=== PATIENT | female | born 1970 | race African-American/Black ===

== ENCOUNTER 2017-09-09 02:13 | Emergency (ER) | payer OTHER ==
[~2017-09-09] VITALS: Ht 167.6 cm; Wt 83.9 kg
[2017-09-09] MEDS ORDERED: SODIUM CHLORIDE 0.9% 1,000 ML IV ONE (06:42)
[2017-09-09] MEDS ORDERED: ASPirin 81 mg TAB PO ONE (06:45)
[2017-09-09 07:50] LABS: Eosinophils # (auto) 0 uL; Eosinophils % (auto) 0.2 % (0.0-7.0); Hemoglobin 12.6 g/dL (12.2-16.2); Mean Corpuscular Hemoglobin 24.4 pg (28.0-32.0); Mean Corpuscular Hgb Conc. 32.5 g/dL (32.0-36.0); Red Blood Cells 5.18 10^6/uL (4.0-5.20); Red Cell Distribution Width 16.6 % (11.8-14.3)
[2017-09-09 07:52] LABS: Basophils # (auto) 0.2 uL; Hematocrit 38.8 % (36.0-46.0); Lymphocytes # (auto) 1.9 uL; Lymphocytes % (auto) 11.2 % (10.0-50.0); Mean Corpuscular Volume 74.9 fL (80.0-100.0); Monocytes # (auto) 0.8 uL; Monocytes % (auto) 4.9 % (0.0-12.0); Neutrophils # (auto) 14.1 uL; Neutrophils % (auto) 82.7 % (37.0-80.0); Platelet Count (auto) 319 10^3/uL (140-450)
[2017-09-09 08:12] LABS: Albumin 3.2 g/dL (3.4-5.0); Bilirubin, Total 0.3 mg/dL (0.2-1.0); Calcium 8.4 mg/dL (8.5-10.1); INR 0.94 (0.9-1.15); Magnesium 2.1 mg/dL (1.6-2.6); Potassium 4.1 mmol/L (3.5-5.1); Prothrombin Time 10.1 sec (9.27-12.13); Total Protein 7.4 g/dL (6.4-8.2)
[2017-09-09 09:02] LABS: Urine Bacteria MANY /hpf (None Seen); Urine Blood 1+ /uL (Negative); Urine Mucus FEW (None Seen); Urine Specific Gravity 1.011 (1.001-1.035); Urine WBC 22 /hpf (0 - 5)
[2017-09-09] MEDS ORDERED: IOHEXOL 350 MG/ML 100ML IJ ONE (10:43)
[2017-09-09] MEDS ORDERED: cefTRIAXone 1GM/10ml IVPUSH 10 ML IV ONE (10:45)
[2017-09-09 13:36] VITALS: BP 142/70
== END 2017-09-09 13:59 | disposition home or self-care (01) ==
LOC: EDBD 02:13 → ER 02:13
DX: J18.1 Lobar pneumonia, unspecified organism (principal); N39.0 Urinary tract infection, site not specified; R09.89 Other specified symptoms and signs involving the circulatory and respiratory systems; E46 Unspecified protein-calorie malnutrition; E11.65 Type 2 diabetes mellitus with hyperglycemia; I10 Essential (primary) hypertension; F17.210 Nicotine dependence, cigarettes, uncomplicated
CPT/HCPCS: 36415; 71045; 71275; 80053; 81001; 83735; 84443; 84484; 85025; 85379; 85610; 85730; 87040; 94761; 96361; 96365; 99285; Q9967; 93005

== ENCOUNTER 2017-12-24 17:03 | Inpatient (IN) | payer OTHER ==
[~2017-12-24] VITALS: Ht 175.3 cm; Wt 69.5 kg
[2017-12-24] MEDS ORDERED: HEPARIN IN NS 1000Units/500mL 0 ML ONE (17:48)
[2017-12-24] MEDS ORDERED: IODIXANOL 320MG/ML 100ML BTL IV ONE (17:48)
[2017-12-24] MEDS ORDERED: LIDOCAINE 2%HCL (LOCAL ANESTH.) INJ 20ML MDV ONE (17:48)
[2017-12-24 17:49] LABS: Urine Pregnacy Test Negative (Negative)
[2017-12-24 17:55] LABS: Urine Bacteria FEW /hpf (None Seen); Urine Blood Negative /uL (Negative); Urine Specific Gravity 1.035 (1.001-1.035); Urine WBC 30 /hpf (0 - 5)
[2017-12-24 18:02] LABS: Alcohol, Urine < 3.0 mg/dL (0-5); Amphetamine Screen, Urine NEGATIVE (NEGATIVE); Barbiturate Scree,Urine NEGATIVE (NEGATIVE); Benzodiazephine Screen, Urine NEGATIVE (NEGATIVE); Cannabinoid Screen, Urine NEGATIVE (NEGATIVE); Cocaine Screen, Urine NEGATIVE (NEGATIVE); Opiate Scree,Urine NEGATIVE (NEGATIVE); Phencyclidine Screen, Urine NEGATIVE (NEGATIVE)
[2017-12-24 18:32] LABS: Albumin 2.6 g/dL (3.4-5.0); Calcium 8.5 mg/dL (8.5-10.1); Potassium 4.4 mmol/L (3.5-5.1)
[2017-12-24 18:36] LABS: Bilirubin, Total 0.3 mg/dL (0.2-1.0); Total Protein 7.2 g/dL (6.4-8.2)
[2017-12-24] MEDS ORDERED: cloNIDine HCL 0.1 MG TAB ONE (18:38)
[2017-12-24] MEDS ORDERED: cloNIDine HCL 0.1 MG TAB PO ONE (18:45)
[2017-12-24] MEDS ORDERED: SODIUM CHLORIDE 0.9% 500 ML IV ONE (19:00)
[2017-12-24] MEDS ORDERED: InsuLIN REG 1unit/0.01ml Soln (100units/ml) IV ONE ×2 (19:00→22:00)
[2017-12-24 19:02] LABS: White Blood Cell 9.3 10^3/uL (4.4-10.8)
[2017-12-24 19:03] LABS: Basophils # (auto) 0.1 uL; Eosinophils # (auto) 0 uL; Eosinophils % (auto) 0.5 % (0.0-7.0); Hemoglobin 12.7 g/dL (12.2-16.2); Lymphocytes % (auto) 21.7 % (10.0-50.0); Monocytes # (auto) 0.7 uL; Monocytes % (auto) 7.2 % (0.0-12.0); Neutrophils # (auto) 6.5 uL; Neutrophils % (auto) 69.6 % (37.0-80.0); Red Blood Cells 5.15 10^6/uL (4.0-5.20)
[2017-12-24 19:04] LABS: Hematocrit 39.1 % (36.0-46.0); Mean Corpuscular Hemoglobin 24.6 pg (28.0-32.0); Mean Corpuscular Hgb Conc. 32.4 g/dL (32.0-36.0); Mean Corpuscular Volume 75.9 fL (80.0-100.0); Platelet Count (auto) 417 10^3/uL (140-450); Red Cell Distribution Width 16.4 % (11.8-14.3)
[2017-12-24] MEDS ORDERED: FUROSEMIDE 20 MG/2 ML VIAL ONE (19:29)
[2017-12-24] MEDS ORDERED: FUROSEMIDE 40 MG/4 ML VIAL IV ONE (19:30)
[2017-12-24] MEDS ORDERED: LABETALOL HCL 5 MG/ML ML 20ML VIAL IV ONE (19:30)
[2017-12-24] MEDS ORDERED: ETOMIDATE (2MG/ML) 20ML VIAL IV ONE ×2 (19:30)
[2017-12-24] MEDS ORDERED: ENOXAPARIN SOD 100 MG/1 ML SYRINGE SC ONE (19:30)
[2017-12-24] MEDS ORDERED: SUCCINYLCHOLINE CHLORIDE 20 MG/ML 10ML VIAL IV ONE ×2 (19:31→19:45)
[2017-12-24] MEDS ORDERED: PROPOFOL 100 ML IV ONE (19:37)
[2017-12-24] MEDS ORDERED: IOHEXOL 350 MG/ML 100ML IJ ONE (19:45)
[2017-12-24] MEDS: PROPOFOL 100 ML IV SCH ×2 (19:48→22:26)
[2017-12-24] MEDS: NICARDIPINE 25MG/250ML BAG KIT 250 ML IV SCH (20:00)
[2017-12-24] MEDS ORDERED: cefTRIAXone 1GM/10ml IVPUSH 10 ML IV ONE (20:30)
[2017-12-24] MEDS ORDERED: HEPARIN DRIP/D5W 100UNITS/ML 250 ML IV SCH (21:08)
[2017-12-24] MEDS ORDERED: MIDAZOLAM DRIP 50 mg/50mL 50 ML IV ONE (21:13)
[2017-12-24] MEDS ORDERED: HEPARIN SODIUM (PORCINE) 5000 UNITS/ML 1ML VIAL IV ONE (21:15)
[2017-12-24] MEDS: MIDAZOLAM DRIP 50 mg/50mL 50 ML IV SCH (21:30)
[2017-12-24 21:45] LABS: Eosinophils # (auto) 0 uL; Eosinophils % (auto) 0.2 % (0.0-7.0); Hematocrit 34.1 % (36.0-46.0); Hemoglobin 10.8 g/dL (12.2-16.2); Lymphocytes % (auto) 6.9 % (10.0-50.0); Mean Corpuscular Hemoglobin 23.8 pg (28.0-32.0); Mean Corpuscular Volume 75.5 fL (80.0-100.0); Neutrophils # (auto) 12.7 uL; Red Blood Cells 4.52 10^6/uL (4.0-5.20); White Blood Cell 14.3 10^3/uL (4.4-10.8)
[2017-12-24 21:47] LABS: Basophils # (auto) 0 uL; Basophils % (auto) 0.3 % (0.0-2.0); Mean Corpuscular Hgb Conc. 31.5 g/dL (32.0-36.0); Monocytes # (auto) 0.6 uL; Monocytes % (auto) 3.9 % (0.0-12.0); Neutrophils % (auto) 88.7 % (37.0-80.0); Nucleated Red Blood Cells % 0.1 %; Platelet Count (auto) 385 10^3/uL (140-450); Red Cell Distribution Width 16.4 % (11.8-14.3)
[2017-12-24 21:52] LABS: Lactic Acid w/Reflex 3.3 mmol/L (0.4-2.0)
[2017-12-24 22:02] LABS: INR 1.13 (0.9-1.15); Partial Thromboplastin Time 24.5 sec (23.78-33.04)
[2017-12-25] VITALS (63 sets, daily range): BP systolic 118–202; BP diastolic 75–120
[2017-12-25] MEDS: MIDAZOLAM DRIP 50 mg/50mL 50 ML IV SCH ×5 (00:07→20:27)
[2017-12-25] MEDS: NICARDIPINE 25MG/250ML BAG KIT 250 ML IV SCH ×3 (01:00→11:00)
[2017-12-25] MEDS ORDERED: DEXTROSE (50%) 50ML SYRG IV PRN ×2 (01:30→10:15)
[2017-12-25] MEDS ORDERED: InsuLIN REG 1unit/0.01ml Soln (100units/ml) SC ONE (01:45)
[2017-12-25] MEDS: PROPOFOL 100 ML IV SCH ×2 (03:58→20:27)
[2017-12-25 04:53] LABS: Eosinophils # (auto) 0.1 uL; Mean Corpuscular Hemoglobin 24.3 pg (28.0-32.0); Monocytes # (auto) 0.5 uL; Nucleated Red Blood Cells % 0.1 %
[2017-12-25 04:55] LABS: Basophils # (auto) 0.1 uL; Basophils % (auto) 0.8 % (0.0-2.0); Eosinophils % (auto) 0.6 % (0.0-7.0); Hemoglobin 10.9 g/dL (12.2-16.2); Lymphocytes # (auto) 2.2 uL; Lymphocytes % (auto) 20.1 % (10.0-50.0); Mean Corpuscular Hgb Conc. 32.2 g/dL (32.0-36.0); Mean Corpuscular Volume 75.6 fL (80.0-100.0); Monocytes % (auto) 4.6 % (0.0-12.0); Neutrophils % (auto) 73.9 % (37.0-80.0); Platelet Count (auto) 373 10^3/uL (140-450); Red Cell Distribution Width 16.1 % (11.8-14.3); White Blood Cell 10.9 10^3/uL (4.4-10.8)
[2017-12-25 05:03] LABS: INR 1.12 (0.9-1.15); Partial Thromboplastin Time 37.9 sec (23.78-33.04); Prothrombin Time 11.9 sec (9.27-12.13)
[2017-12-25 05:10] LABS: BUN/Creatinine Ratio 14.4; Calcium 8.2 mg/dL (8.5-10.1); Potassium 3.6 mmol/L (3.5-5.1)
[2017-12-25] MEDS: FUROSEMIDE 40 MG/4 ML VIAL IV SCH ×2 (05:46→18:10)
[2017-12-25] MEDS ORDERED: InsuLIN REG 1unit/0.01ml Soln (100units/ml) SC SCH (06:00)
[2017-12-25] MEDS ORDERED: ACCU-CHEK COMFORT CURVE STRIP VI SCH (06:00)
[2017-12-25] MEDS ORDERED: ACETAMINOPHEN 500 MG TAB PO PRN (06:00)
[2017-12-25 09:00] LABS: INR 1.13 (0.9-1.15); Partial Thromboplastin Time 33.3 sec (23.78-33.04)
[2017-12-25] MEDS ORDERED: LIDOCAINE 2% (LOCAL ANESTH.) PF 5ml SDV ONE (10:52)
[2017-12-25] MEDS ORDERED: IODIXANOL 320MG/ML 100ML BTL IV ONE ×2 (10:52→14:26)
[2017-12-25] MEDS ORDERED: ASPirin-EC 81 mg tab PO SCH (11:45)
[2017-12-25] MEDS ORDERED: ATORVASTATIN 20 MG TAB PO SCH (11:45)
[2017-12-25] MEDS: PIPERACILLIN-TAZOB 3.375GM 100 ML IV SCH ×3 (12:08→23:07)
[2017-12-25] MEDS: SOD CHL 0.45% 1,000 ML IV SCH ×2 (12:08→20:15)
[2017-12-25] MEDS: ACCU-CHEK COMFORT CURVE STRIP VI SCH ×2 (12:09→18:11)
[2017-12-25] MEDS: InsuLIN REG 1unit/0.01ml Soln (100units/ml) SC SCH ×2 (12:09→18:11)
[2017-12-25] MEDS ORDERED: EPINEPHrine HCL 1 MG/10 ML SYRG ONE (13:11)
[2017-12-25] MEDS ORDERED: ATROPINE SULF 1 MG/10ml SYR ONE (13:11)
[2017-12-25] MEDS ORDERED: ANGIOMAX 250 MG VIAL IV ONE (14:08)
[2017-12-25] MEDS ORDERED: SODIUM CHL 0.9% 0 ML ONE (14:08)
[2017-12-25] MEDS ORDERED: HEPARIN SODIUM (PORCINE) 5000 UNITS/ML 1ML VIAL ONE (14:08)
[2017-12-25] MEDS ORDERED: CLOPIDOGREL 300 MG TAB ONE (14:45)
[2017-12-25] MEDS ORDERED: ASPirin 325 MG TAB ONE (14:46)
[2017-12-25] MEDS ORDERED: HEPARIN DRIP/D5W 100UNITS/ML 250 ML IV SCH (15:00)
[2017-12-25] MEDS: METOPROLOL TARTRATE 25 MG TAB PO SCH (21:52)
[2017-12-25] MEDS: ATORVASTATIN 20 MG TAB PO SCH (21:53)
[2017-12-25] MEDS ORDERED: LABETALOL HCL 5 MG/ML ML 20ML VIAL IV ONE (23:00)
[2017-12-26] VITALS (107 sets, daily range): BP systolic 110–186; BP diastolic 70–113
[2017-12-26] MEDS: ACCU-CHEK COMFORT CURVE STRIP VI SCH ×5 (00:18→23:52)
[2017-12-26] MEDS: PROPOFOL 100 ML IV SCH ×2 (03:36→15:52)
[2017-12-26 04:27] LABS: BUN/Creatinine Ratio 8.1; Calcium 8.1 mg/dL (8.5-10.1); Magnesium 1.8 mg/dL (1.6-2.6); Potassium 3.1 mmol/L (3.5-5.1)
[2017-12-26] MEDS: PIPERACILLIN-TAZOB 3.375GM 100 ML IV SCH ×4 (04:57→23:03)
[2017-12-26] MEDS ORDERED: POTASSIUM EFFERVESENT TAB 25 MEQ GT ONE ×2 (06:00→07:15)
[2017-12-26] MEDS: InsuLIN REG 1unit/0.01ml Soln (100units/ml) SC SCH ×5 (06:07→23:52)
[2017-12-26] MEDS: FUROSEMIDE 40 MG/4 ML VIAL IV SCH ×2 (06:07→17:27)
[2017-12-26] MEDS: POTASSIUM CHL 20MEQ/100ML 100 ML IV SCH ×2 (06:12→09:36)
[2017-12-26] MEDS: MIDAZOLAM DRIP 50 mg/50mL 50 ML IV SCH ×3 (06:40→21:41)
[2017-12-26] MEDS ORDERED: hydrALAZINE HCL 20 MG/ML VL IV PRN (07:15)
[2017-12-26] MEDS ORDERED: POTASSIUM CHL 20MEQ/100ML 100 ML IV ONE (08:15)
[2017-12-26] MEDS: SOD CHL 0.45% WITH 20MEQ KCL 1,000 ML IV SCH ×2 (08:30→19:27)
[2017-12-26 09:04] LABS: Albumin 2.4 g/dL (3.4-5.0); Bilirubin, Direct 0.2 mg/dL (0-0.2); Bilirubin, Total 0.5 mg/dL (0.2-1.0); Total Protein 6.9 g/dL (6.4-8.2)
[2017-12-26] MEDS: ACETAMINOPHEN 500 MG TAB PO PRN ×2 (09:55→17:27)
[2017-12-26] MEDS: ASPirin-EC 81 mg tab PO SCH (09:55)
[2017-12-26] MEDS: LISINOPRIL 20 MG TAB PO SCH (09:56)
[2017-12-26] MEDS: CLOPIDOGREL BISULFATE 75 MG TAB PO SCH (09:56)
[2017-12-26] MEDS: METOPROLOL TARTRATE 25 MG TAB PO SCH ×2 (09:56→21:46)
[2017-12-26] MEDS ORDERED: ASPirin 300 MG RECTAL SUPP PR SCH (10:00)
[2017-12-26] MEDS ORDERED: LOSA100T22 PO (10:53)
[2017-12-26] MEDS ORDERED: GABA-339 PO (10:53)
[2017-12-26] MEDS ORDERED: METO-5 PO (10:53)
[2017-12-26] MEDS ORDERED: ATO40T PO (10:53)
[2017-12-26] MEDS ORDERED: INS7030I SC (14:03)
[2017-12-26] MEDS: ATORVASTATIN 20 MG TAB PO SCH (21:45)
[2017-12-27] VITALS (104 sets, daily range): BP systolic 96–174; BP diastolic 51–110
[2017-12-27] MEDS: PROPOFOL 100 ML IV SCH ×2 (01:59→22:02)
[2017-12-27 04:51] LABS: BUN/Creatinine Ratio 9.7; Magnesium 2.1 mg/dL (1.6-2.6); Potassium 3.5 mmol/L (3.5-5.1)
[2017-12-27] MEDS: MIDAZOLAM DRIP 50 mg/50mL 50 ML IV SCH (05:07)
[2017-12-27] MEDS: PIPERACILLIN-TAZOB 3.375GM 100 ML IV SCH ×4 (05:07→22:00)
[2017-12-27] MEDS: InsuLIN REG 1unit/0.01ml Soln (100units/ml) SC SCH ×3 (06:00→17:40)
[2017-12-27] MEDS: ACCU-CHEK COMFORT CURVE STRIP VI SCH ×3 (06:08→17:40)
[2017-12-27] MEDS: FUROSEMIDE 40 MG/4 ML VIAL IV SCH ×2 (06:08→17:40)
[2017-12-27] MEDS: SOD CHL 0.45% WITH 20MEQ KCL 1,000 ML IV SCH (06:31)
[2017-12-27] MEDS: CLOPIDOGREL BISULFATE 75 MG TAB PO SCH (09:30)
[2017-12-27] MEDS: LISINOPRIL 20 MG TAB PO SCH (09:30)
[2017-12-27] MEDS: ACETAMINOPHEN 500 MG TAB PO PRN (09:31)
[2017-12-27] MEDS: METOPROLOL TARTRATE 25 MG TAB PO SCH ×2 (09:31→21:59)
[2017-12-27] MEDS: ASPirin-EC 81 mg tab PO SCH (09:31)
[2017-12-27] MEDS ORDERED: Glucerna 1.2 Cal 1Liter BOTTLE GT SCH (11:45)
[2017-12-27] MEDS ORDERED: PANTOPRAZOLE 40 MG/10 ML VIAL IV ONE (11:45)
[2017-12-27] MEDS ORDERED: LEVOFLOXACIN 500MG 100 ML IV ONE (11:45)
[2017-12-27] MEDS: ALBUTEROL SULF 2.5 MG/0.5ML(0.5%) NEB SOLN NEB SCH (18:44)
[2017-12-27] MEDS: IPRATROPIUM BROM 0.5 MG/2.5ML INH SOL NEB SCH (18:44)
[2017-12-27] MEDS: ATORVASTATIN 20 MG TAB PO SCH (21:59)
[2017-12-27] MEDS: INSULIN LANTUS (GLARGINE) 1 /0.01ml (100units/ml) SC SCH (22:00)
[2017-12-28] VITALS (72 sets, daily range): BP systolic 85–160; BP diastolic 52–91
[2017-12-28] MEDS: IPRATROPIUM BROM 0.5 MG/2.5ML INH SOL NEB SCH ×4 (00:14→19:42)
[2017-12-28] MEDS: ALBUTEROL SULF 2.5 MG/0.5ML(0.5%) NEB SOLN NEB SCH ×4 (00:14→19:42)
[2017-12-28] MEDS: InsuLIN REG 1unit/0.01ml Soln (100units/ml) SC SCH ×4 (00:19→18:00)
[2017-12-28] MEDS: PROPOFOL 100 ML IV SCH ×2 (00:19→04:28)
[2017-12-28] MEDS: ACCU-CHEK COMFORT CURVE STRIP VI SCH ×4 (00:19→18:00)
[2017-12-28 04:26] LABS: Basophils # (auto) 0.1 uL; Basophils % (auto) 0.5 % (0.0-2.0); Eosinophils # (auto) 0.1 uL; Eosinophils % (auto) 0.5 % (0.0-7.0); Hemoglobin 12.1 g/dL (12.2-16.2); Lymphocytes # (auto) 1.2 uL; Lymphocytes % (auto) 10.1 % (10.0-50.0); Mean Corpuscular Hemoglobin 24.2 pg (28.0-32.0); Mean Corpuscular Hgb Conc. 32.7 g/dL (32.0-36.0); Mean Corpuscular Volume 74.3 fL (80.0-100.0); Monocytes # (auto) 1.1 uL; Neutrophils # (auto) 9.6 uL; Neutrophils % (auto) 79.9 % (37.0-80.0); Nucleated Red Blood Cells % 0.1 %; Platelet Count (auto) 402 10^3/uL (140-450); Red Blood Cells 4.98 10^6/uL (4.0-5.20); Red Cell Distribution Width 16.5 % (11.8-14.3); White Blood Cell 12.1 10^3/uL (4.4-10.8)
[2017-12-28 04:39] LABS: BUN/Creatinine Ratio 10.1; Calcium 8.5 mg/dL (8.5-10.1); Magnesium 1.9 mg/dL (1.6-2.6); Potassium 3.5 mmol/L (3.5-5.1)
[2017-12-28] MEDS: FUROSEMIDE 40 MG/4 ML VIAL IV SCH (06:02)
[2017-12-28] MEDS: PIPERACILLIN-TAZOB 3.375GM 100 ML IV SCH ×2 (06:02→11:40)
[2017-12-28] MEDS: CLOPIDOGREL BISULFATE 75 MG TAB PO SCH (09:40)
[2017-12-28] MEDS: ASPirin-EC 81 mg tab PO SCH (09:40)
[2017-12-28] MEDS: METOPROLOL TARTRATE 25 MG TAB PO SCH ×2 (09:42→22:17)
[2017-12-28] MEDS: LISINOPRIL 20 MG TAB PO SCH (09:42)
[2017-12-28] MEDS: LEVOFLOXACIN 500MG 100 ML IV SCH (09:43)
[2017-12-28] MEDS: PANTOPRAZOLE 40 MG/10 ML VIAL IV SCH (09:43)
[2017-12-28] MEDS ORDERED: POTASSIUM CHL 20 Meq TABLET PO ONE (15:00)
[2017-12-28] MEDS ORDERED: FUROSEMIDE 40 MG/4 ML VIAL IV ONE (15:15)
[2017-12-28] MEDS: MAGNESIUM SULFATE 1GM/100ML 100 ML IV SCH ×2 (15:32→16:55)
[2017-12-28] MEDS: GABAPENTIN 300 MG CAP PO SCH (18:44)
[2017-12-28] MEDS: INSULIN LANTUS (GLARGINE) 1 /0.01ml (100units/ml) SC SCH (22:13)
[2017-12-28] MEDS: ATORVASTATIN 20 MG TAB PO SCH (22:14)
[2017-12-29] VITALS: BP 137/77
[2017-12-29] MEDS: ACCU-CHEK COMFORT CURVE STRIP VI SCH ×4 (00:11→17:36)
[2017-12-29] MEDS: InsuLIN REG 1unit/0.01ml Soln (100units/ml) SC SCH ×4 (00:18→17:45)
[2017-12-29] MEDS: IPRATROPIUM BROM 0.5 MG/2.5ML INH SOL NEB SCH ×4 (01:02→19:42)
[2017-12-29] MEDS: ALBUTEROL SULF 2.5 MG/0.5ML(0.5%) NEB SOLN NEB SCH ×4 (01:02→19:42)
[2017-12-29] MEDS: GABAPENTIN 300 MG CAP PO SCH ×3 (02:35→17:35)
[2017-12-29 04:00] VITALS: BP 101/60
[2017-12-29 06:14] LABS: Basophils # (auto) 0.1 uL; Hemoglobin 10.5 g/dL (12.2-16.2); Mean Corpuscular Hemoglobin 24.4 pg (28.0-32.0); Neutrophils # (auto) 8.8 uL; Nucleated Red Blood Cells % 0.1 %
[2017-12-29 06:16] LABS: Basophils % (auto) 0.6 % (0.0-2.0); Eosinophils # (auto) 0.1 uL; Eosinophils % (auto) 0.5 % (0.0-7.0); Hematocrit 31.7 % (36.0-46.0); Lymphocytes # (auto) 1.8 uL; Lymphocytes % (auto) 15.3 % (10.0-50.0); Mean Corpuscular Hgb Conc. 33.1 g/dL (32.0-36.0); Mean Corpuscular Volume 73.7 fL (80.0-100.0); Monocytes # (auto) 0.9 uL; Monocytes % (auto) 8.1 % (0.0-12.0); Neutrophils % (auto) 75.5 % (37.0-80.0); Platelet Count (auto) 463 10^3/uL (140-450); Red Cell Distribution Width 16.3 % (11.8-14.3); White Blood Cell 11.6 10^3/uL (4.4-10.8)
[2017-12-29 06:31] LABS: BUN/Creatinine Ratio 11.4; Calcium 8.6 mg/dL (8.5-10.1); Potassium 3.2 mmol/L (3.5-5.1)
[2017-12-29 07:30] VITALS: BP 139/82
[2017-12-29] MEDS: PANTOPRAZOLE 40 MG/10 ML VIAL IV SCH (09:29)
[2017-12-29] MEDS: LEVOFLOXACIN 500MG 100 ML IV SCH (09:29)
[2017-12-29] MEDS: METOPROLOL TARTRATE 25 MG TAB PO SCH ×2 (09:30→22:00)
[2017-12-29] MEDS: ASPirin-EC 81 mg tab PO SCH (09:30)
[2017-12-29] MEDS: CLOPIDOGREL BISULFATE 75 MG TAB PO SCH (09:30)
[2017-12-29] MEDS ORDERED: FUROSEMIDE 40 MG/4 ML VIAL IV SCH (10:00)
[2017-12-29] MEDS ORDERED: POTASSIUM CHL 20 Meq TABLET PO ONE (11:15)
[2017-12-29 12:00] VITALS: BP 114/7
[2017-12-29 15:50] VITALS: BP 107/57
[2017-12-29] MEDS: ATORVASTATIN 20 MG TAB PO SCH (21:59)
[2017-12-29 22:00] VITALS: BP 133/61
[2017-12-29] MEDS: SACUBITRIL-VALSARTAN 24mg/26mg TAB PO SCH (22:00)
[2017-12-29] MEDS: INSULIN LANTUS (GLARGINE) 1 /0.01ml (100units/ml) SC SCH (22:01)
[2017-12-30] MEDS: ALBUTEROL SULF 2.5 MG/0.5ML(0.5%) NEB SOLN NEB SCH ×4 (00:17→19:18)
[2017-12-30] MEDS: IPRATROPIUM BROM 0.5 MG/2.5ML INH SOL NEB SCH ×4 (00:17→19:18)
[2017-12-30] MEDS: ACCU-CHEK COMFORT CURVE STRIP VI SCH ×4 (00:36→17:26)
[2017-12-30] MEDS: InsuLIN REG 1unit/0.01ml Soln (100units/ml) SC SCH ×4 (00:37→17:25)
[2017-12-30] MEDS: GABAPENTIN 300 MG CAP PO SCH ×3 (02:15→17:25)
[2017-12-30 05:00] VITALS: BP 147/72
[2017-12-30 08:06] LABS: Calcium 8.7 mg/dL (8.5-10.1); Potassium 3.3 mmol/L (3.5-5.1)
[2017-12-30 08:37] VITALS: BP 148/58
[2017-12-30] MEDS: ASPirin-EC 81 mg tab PO SCH (10:22)
[2017-12-30] MEDS: PANTOPRAZOLE 40 MG TAB PO SCH (10:22)
[2017-12-30] MEDS: CLOPIDOGREL BISULFATE 75 MG TAB PO SCH (10:22)
[2017-12-30] MEDS: LEVOFLOXACIN 500 MG TAB PO SCH (10:22)
[2017-12-30] MEDS: METOPROLOL TARTRATE 25 MG TAB PO SCH ×2 (10:23→22:35)
[2017-12-30] MEDS: FUROSEMIDE 40 MG TAB PO SCH (10:23)
[2017-12-30] MEDS: SACUBITRIL-VALSARTAN 24mg/26mg TAB PO SCH ×2 (10:23→22:35)
[2017-12-30 12:10] VITALS: BP 90/72
[2017-12-30] MEDS ORDERED: POTASSIUM CHL 20 Meq TABLET PO ONE (12:15)
[2017-12-30 16:59] VITALS: BP 139/80
[2017-12-30] MEDS: Glucerna Carbsteady SHAKE Vanilla 8oz PO SCH (17:25)
[2017-12-30 22:00] VITALS: BP 138/79
[2017-12-30] MEDS: ATORVASTATIN 20 MG TAB PO SCH (22:35)
[2017-12-30] MEDS: INSULIN LANTUS (GLARGINE) 1 /0.01ml (100units/ml) SC SCH (22:40)
[2017-12-31] MEDS: IPRATROPIUM BROM 0.5 MG/2.5ML INH SOL NEB SCH ×4 (00:33→18:33)
[2017-12-31] MEDS: ALBUTEROL SULF 2.5 MG/0.5ML(0.5%) NEB SOLN NEB SCH ×4 (00:34→18:32)
[2017-12-31] MEDS: InsuLIN REG 1unit/0.01ml Soln (100units/ml) SC SCH ×4 (00:38→18:40)
[2017-12-31] MEDS: GABAPENTIN 300 MG CAP PO SCH ×3 (00:39→18:40)
[2017-12-31 04:43] VITALS: BP 94/64
[2017-12-31] MEDS: ACCU-CHEK COMFORT CURVE STRIP VI SCH ×4 (06:03→18:41)
[2017-12-31 07:13] LABS: Basophils # (auto) 0.1 uL; Eosinophils # (auto) 0.1 uL; Eosinophils % (auto) 1.4 % (0.0-7.0); Hemoglobin 12.8 g/dL (12.2-16.2); Mean Corpuscular Hgb Conc. 31.9 g/dL (32.0-36.0); Neutrophils # (auto) 5.6 uL; Nucleated Red Blood Cells % 0.1 %
[2017-12-31 07:15] LABS: Basophils % (auto) 1.2 % (0.0-2.0); Hematocrit 40.1 % (36.0-46.0); Lymphocytes # (auto) 1.8 uL; Lymphocytes % (auto) 21.2 % (10.0-50.0); Mean Corpuscular Hemoglobin 24.1 pg (28.0-32.0); Mean Corpuscular Volume 75.6 fL (80.0-100.0); Monocytes # (auto) 0.7 uL; Monocytes % (auto) 8.8 % (0.0-12.0); Neutrophils % (auto) 67.4 % (37.0-80.0); Platelet Count (auto) 507 10^3/uL (140-450); Red Cell Distribution Width 16.1 % (11.8-14.3); White Blood Cell 8.3 10^3/uL (4.4-10.8)
[2017-12-31 07:22] LABS: Calcium 8.9 mg/dL (8.5-10.1); Magnesium 2.2 mg/dL (1.6-2.6); Potassium 4.4 mmol/L (3.5-5.1)
[2017-12-31 08:35] VITALS: BP 134/83
[2017-12-31] MEDS: Glucerna Carbsteady SHAKE Vanilla 8oz PO SCH ×3 (08:58→18:39)
[2017-12-31] MEDS: ASPirin-EC 81 mg tab PO SCH (09:39)
[2017-12-31] MEDS: PANTOPRAZOLE 40 MG TAB PO SCH (09:40)
[2017-12-31] MEDS: CLOPIDOGREL BISULFATE 75 MG TAB PO SCH (09:40)
[2017-12-31] MEDS: LEVOFLOXACIN 500 MG TAB PO SCH (09:40)
[2017-12-31] MEDS: METOPROLOL TARTRATE 25 MG TAB PO SCH ×2 (09:42→22:22)
[2017-12-31] MEDS: FUROSEMIDE 40 MG TAB PO SCH (09:42)
[2017-12-31] MEDS: SACUBITRIL-VALSARTAN 24mg/26mg TAB PO SCH ×2 (09:43→22:00)
[2017-12-31 12:12] VITALS: BP 136/74
[2017-12-31 17:36] VITALS: BP 144/90
[2017-12-31] MEDS: ATORVASTATIN 20 MG TAB PO SCH (22:21)
[2017-12-31] MEDS: INSULIN LANTUS (GLARGINE) 1 /0.01ml (100units/ml) SC SCH (22:22)
[2017-12-31 22:23] VITALS: BP 163/85
[2017-12-31 22:45] VITALS: BP 107/76
[2018-01-01] MEDS: ACCU-CHEK COMFORT CURVE STRIP VI SCH ×3 (00:10→11:58)
[2018-01-01] MEDS: InsuLIN REG 1unit/0.01ml Soln (100units/ml) SC SCH ×3 (00:10→11:59)
[2018-01-01] MEDS: IPRATROPIUM BROM 0.5 MG/2.5ML INH SOL NEB SCH ×3 (00:24→12:00)
[2018-01-01] MEDS: ALBUTEROL SULF 2.5 MG/0.5ML(0.5%) NEB SOLN NEB SCH ×3 (00:25→11:59)
[2018-01-01] MEDS: GABAPENTIN 300 MG CAP PO SCH ×2 (02:26→10:15)
[2018-01-01] MEDS: Glucerna Carbsteady SHAKE Vanilla 8oz PO SCH ×2 (05:11→11:59)
[2018-01-01 05:52] VITALS: BP 152/98
[2018-01-01 08:46] VITALS: BP 102/72
[2018-01-01] MEDS: SACUBITRIL-VALSARTAN 24mg/26mg TAB PO SCH (10:13)
[2018-01-01] MEDS: FUROSEMIDE 40 MG TAB PO SCH (10:13)
[2018-01-01] MEDS: CLOPIDOGREL BISULFATE 75 MG TAB PO SCH (10:14)
[2018-01-01] MEDS: METOPROLOL TARTRATE 25 MG TAB PO SCH (10:14)
[2018-01-01] MEDS: LEVOFLOXACIN 500 MG TAB PO SCH (10:14)
[2018-01-01] MEDS: PANTOPRAZOLE 40 MG TAB PO SCH (10:14)
[2018-01-01] MEDS: ASPirin-EC 81 mg tab PO SCH (10:14)
[2018-01-01 10:54] VITALS: BP 157/44
[2018-01-01 13:00] VITALS: BP 131/68
== END 2018-01-01 17:09 | disposition home or self-care (01) | DRG 853 ==
LOC: ER 17:13 → OVERFLOW 17:14 → ICU WEST 12-25 08:50 → DOU IN ICU 12-28 17:54 → TELE-CENTR 12-29 21:03
PROVIDERS: ADMIT Nurse Practitioner Family; ATTEND Internal Medicine
PROC: 0BH17EZ Insertion of Endotracheal Airway into Trachea, Via Natural or Artificial Opening (ICD-10-PCS; 2017-12-24)
PROC: 027034Z Dilation of Coronary Artery, One Artery with Drug-eluting Intraluminal Device, Percutaneous Approach (ICD-10-PCS; principal; 2017-12-25)
PROC: 4A023N7 Measurement of Cardiac Sampling and Pressure, Left Heart, Percutaneous Approach (ICD-10-PCS; 2017-12-25)
PROC: B2111ZZ Fluoroscopy of Multiple Coronary Arteries using Low Osmolar Contrast (ICD-10-PCS; 2017-12-25)
PROC: 5A1945Z Respiratory Ventilation, 24-96 Consecutive Hours (ICD-10-PCS; 2017-12-25)
DX: A41.9 Sepsis, unspecified organism (principal); J18.9 Pneumonia, unspecified organism; E43 Unspecified severe protein-calorie malnutrition; I21.4 Non-ST elevation (NSTEMI) myocardial infarction; I50.43 Acute on chronic combined systolic (congestive) and diastolic (congestive) heart failure; J96.22 Acute and chronic respiratory failure with hypercapnia; N30.00 Acute cystitis without hematuria; J44.0 Chronic obstructive pulmonary disease with (acute) lower respiratory infection; E11.9 Type 2 diabetes mellitus without complications; F17.210 Nicotine dependence, cigarettes, uncomplicated; I11.0 Hypertensive heart disease with heart failure; I25.10 Atherosclerotic heart disease of native coronary artery without angina pectoris; I25.2 Old myocardial infarction; Z79.02 Long term (current) use of antithrombotics/antiplatelets; Z79.4 Long term (current) use of insulin; Z79.82 Long term (current) use of aspirin; Z79.84 Long term (current) use of oral hypoglycemic drugs; Z88.1 Allergy status to other antibiotic agents; Z68.22 Body mass index [BMI] 22.0-22.9, adult
CPT/HCPCS: 31500; 36415; 36600; 71045; 71275; 80048; 80053; 80076; 80307; 81001; 81025; 82805; 82962; 83036; 83605; 83735; 83880; 84132; 84484; 85025; 85379; 85610; 85730; 87040; 87070; 87081; 87205; 92928; 93005; 93306; 93458; 94002; 94003; 94640; 96365; 96375; 97163; 99152; 99153; 99291; 99292; A6257; C1874; C9113; J0330; J0696; J1815; J1956; J2001; J2250; J2543; J2704; J3480; Q9967

== ENCOUNTER 2019-04-23 00:22 | Emergency (ER) | payer OTHER ==
[~2019-04-23 00:22] MED LIST: ATO40T PO; GABA-339 PO; INS7030I SC; LOSA100T22 PO; METO-5 PO
[2019-04-23] MEDS ORDERED: cloNIDine HCL 0.1 MG TAB PO ONE (00:45)
[2019-04-23] MEDS ORDERED: ASPirin 81 mg TAB PO ONE (00:45)
[2019-04-23] MEDS ORDERED: ONDANSETRON ODT 4 MG TAB PO ONE ×2 (00:45)
[2019-04-23] MEDS ORDERED: cloNIDine HCL 0.1 MG TAB ONE (01:33)
[2019-04-23 02:14] LABS: Basophils # (auto) 0.1 uL; Basophils % (auto) 1.1 % (0.0-2.0); Eosinophils # (auto) 0 uL; Eosinophils % (auto) 0.4 % (0.0-7.0); Hemoglobin 11.3 g/dL (12.2-16.2); Lymphocytes # (auto) 1.8 uL; Monocytes # (auto) 0.7 uL; Monocytes % (auto) 7.5 % (0.0-12.0); Nucleated Red Blood Cells % 0.1 %; Red Blood Cells 4.64 10^6/uL (4.0-5.20)
[2019-04-23 02:16] LABS: Hematocrit 35.5 % (36.0-46.0); Lymphocytes % (auto) 19.4 % (10.0-50.0); Mean Corpuscular Hemoglobin 24.5 pg (28.0-32.0); Mean Corpuscular Volume 76.4 fL (80.0-100.0); Neutrophils # (auto) 6.6 uL; Neutrophils % (auto) 71.6 % (37.0-80.0); Platelet Count (auto) 273 10^3/uL (140-450); Red Cell Distribution Width 17.7 % (11.8-14.3); White Blood Cell 9.2 10^3/uL (4.4-10.8)
[2019-04-23 02:27] LABS: INR 1.12 (0.9-1.15); Partial Thromboplastin Time 24.2 sec (23.64-32.05)
[2019-04-23] MEDS ORDERED: LORazepam 2MG/ML-1ML VIAL IV ONE (02:30)
[2019-04-23 02:34] LABS: Albumin 3.2 g/dL (3.4-5.0); BUN/Creatinine Ratio 13.3; Calcium 8.3 mg/dL (8.5-10.1)
[2019-04-23 02:38] LABS: Bilirubin, Total 0.5 mg/dL (0.2-1.0); Total Protein 7.1 g/dL (6.4-8.2)
[2019-04-23 04:00] VITALS: BP 169/84
== END 2019-04-23 05:56 | disposition home or self-care (01) ==
LOC: ER 00:24
DX: I16.0 Hypertensive urgency (principal); E11.65 Type 2 diabetes mellitus with hyperglycemia; I11.0 Hypertensive heart disease with heart failure; I50.9 Heart failure, unspecified; I25.2 Old myocardial infarction; E11.9 Type 2 diabetes mellitus without complications; Z98.61 Coronary angioplasty status; Z88.1 Allergy status to other antibiotic agents
CPT/HCPCS: 36415; 71045; 80053; 83880; 84484; 85025; 85610; 85730; 96374; 99284; J2060; Q0162